=== PATIENT | male | born 1985 ===

== ENCOUNTER 2018-02-05 14:12 | Emergency (ER) | payer OTHER ==
[2018-02-05 15:30] LABS: AMPHETAMINE/METHAMPHETAMINE Negative (NEGATIVE); BARBITURATES Negative (NEGATIVE); BENZODIAZEPINES Negative (NEGATIVE); CANNABINOIDS Positive (NEGATIVE); COCAINE Negative (NEGATIVE); OPIATES Negative (NEGATIVE)
== END 2018-02-05 16:05 ==
LOC: E/R 14:12
DX: F12.10 Cannabis abuse, uncomplicated (principal); F10.129 Alcohol abuse with intoxication, unspecified
CPT/HCPCS: 80307; 99283